=== PATIENT | female | born 1995 | race Caucasian/White ===

== ENCOUNTER 2018-03-17 07:26 | Inpatient (IN) | payer MEDICAID ==
[2018-03-17] MEDS ORDERED: RINGERS SOLUTION,LACTATED 300 ML IV ONE (08:11)
[2018-03-17] MEDS ORDERED: RINGERS SOLUTION,LACTATED 1,000 ML IV PRN ×2 (08:11)
[2018-03-17] MEDS ORDERED: OXYTOCIN/NORMAL SALINE 20 UNIT/1,000 ML RTUINJ IV PRN ×2 (08:11→15:06)
[2018-03-17] MEDS ORDERED: OXYTOCIN/NORMAL SALINE 0 UNIT/0 ML RTUINJ ONE (09:06)
[2018-03-17] MEDS ORDERED: LIDOCAINE 1% INJ-PF (10 MG/ML) 30 ML SDV ONE (09:20)
[2018-03-17] MEDS ORDERED: OXYTOCIN/NORMAL SALINE 20 UNIT/1,000 ML RTUINJ ONE (09:20)
[2018-03-17] MEDS ORDERED: MISOPROSTOL 0.2 MG TABLET ONE (09:20)
[2018-03-17 09:29] LABS: APPEARANCE,URINE CLEAR; BILIRUBIN,URINE NEGATIVE (NEGATIVE); COLOR,URINE YELLOW; GLUCOSE, URINE NEGATIVE (NEGATIVE); KETONES,URINE NEGATIVE (NEGATIVE); LEUKOCYTE ESTERASE,URINE NEGATIVE (NEGATIVE); NITRITE,URINE NEGATIVE (NEGATIVE); PROTEIN,URINE NEGATIVE (NEGATIVE); UROBILINOGEN,URINE NEGATIVE mg/dL (<2.0)
[2018-03-17 09:29] LABS: ABSOLUTE BASOPHILS # (AUTO) 0.1 10^3/uL (0.0-0.2); ABSOLUTE LYMPHOCYTES (AUTO) 1.6 10^3/uL (0.5-4.7); ABSOLUTE MONOCYTES (AUTO) 0.6 10^3/uL (0.1-1.4); ABSOLUTE NEUT (AUTO) 7.8 10^3/uL (1.7-8.2); BASOPHILS % (AUTO) 0.7 % (0-2); EOSINOPHILS % (AUTO) 0.2 % (0-6); HEMATOCRIT 39.4 % (36.0-47.0); HEMOGLOBIN 13.6 g/dL (12.0-15.5); LYMPHOCYTES % (AUTO) 15.9 % (13-45); MEAN CORPUSCULAR HEMOGLOBIN 30.3 pg (27.0-33.4); MEAN CORPUSCULAR HGB CONC 34.6 g/dL (32.0-36.0); MEAN CORPUSCULAR VOLUME 88 fl (80-97); MONOCYTES % (AUTO) 6.2 % (3-13); PLATELET COUNT 263 10^3/uL (150-450); RED BLOOD COUNT 4.51 10^6/uL (3.72-5.28); RED CELL DISTRIBUTION WIDTH 12.5 % (11.5-14.0); TOTAL CELLS COUNTED % (AUTO) 100 %; WHITE BLOOD COUNT 10.1 10^3/uL (4.0-10.5)
[2018-03-17 09:34] LABS: URINE SPECIFIC GRAVITY 1.013
[2018-03-17 10:07] LABS: URINE AMPHETAMINES SCREEN NEGATIVE; URINE BARBITURATES SCREEN NEGATIVE; URINE BENZODIAZEPINES SCREEN NEGATIVE; URINE COCAINE SCREEN NEGATIVE; URINE MARIJUANA (THC) SCREEN NEGATIVE; URINE METHADONE SCREEN NEGATIVE; URINE PHENCYCLIDINE SCREEN NEGATIVE
--- NOTE | 2018-03-17 15:01 | Admission Physical ---
Datetime Report Generated by CPN: 03/17/2018 15:01 CURRENT ADMISSION Chief Complaint: Scheduled Induction of Labor Indication for Induction: Post Dates Admit Impression : Term, Intrauterine Admit Plan: Admit to Unit; Initiate Labor Induction Protocol ALLERGIES Medication Allergies: No Medication Allergies: No Known Allergies (02/20/2016) Latex: No Latex Allergies OBSTETRICAL HISTORY EDC: 03/11/2018 00:00 : 4 Para: 3 Term: 3 : 0 SAB: 0 IAB: 0 Ectopic: 0 Livin Cesareans: 0 VBACs: 0 Multiple Births: 0 Gestational Diabetes: No Rh Sensitization: No Incompetent Cervix: No RAKESH: No Infertility: No ART Treatment: No Uterine Anomaly: No IUGR: No Hx Previous C/S: No Macrosomia: No Hx Loss/Stillborn: No PIH: Yes Hx : No Placenta Previa/Abruption: No Depression/PP Depression: No PTL/PROM: No Post Hemorrhage: No Current Procedures: Ultrasound; NST Obstetrical History Comments: G1- 2012 at 39 weeks, 7lbs 7oz male, epidural G2- 2015 at 40 weeks, 7lbs 3oz male G3- 2016 at 39 weeks, 8lbs female G4- current, late PNC at 28 weeks, GHTN SEE RECORDS Alcohol: No Marijuana : No Cocaine: No Other Illicit Drugs: No Cigarettes: Former Smoker. 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 Surgery: No Heart Disease: No Hosp/Surgery: Yes Autoimmune Disorder: No Anesthetic Complications: No Kidney Disease: No Abnormal Pap Smear: No Neuro/Epilepsy: No Psychiatric Disorders: No Other Medical Diseases: No Hepatitis/Liver Disease: No Significant Family History: No Varicosities/Phlebitis: No Trauma/Violence : No Thyroid Dysfunction: No INFECTIOUS HISTORY Gonorrhea: No Genital Herpes: No Chlamydia: No Tuberculosis: No Syphilis: No Hepatitis: No HIV/AIDS Exposure: No Rash or Viral Illness: No HPV: No PHYSICAL EXAM General: Normal HEENT: Normal Neurologic: Normal Thyroid: Deferred Heart: Normal Lungs: Normal Breast: Deferred Back: Normal Abdomen: Normal Genitourinary Exam: Normal Extremities: Normal DTRs: Deferred Pelvic Type: Adequate Physical Exam Comments: pellvis proven to 8# Vital Signs: Reviewed VAGINAL EXAM Dilatation: 2-3 in clinic Contraction Comments: q3ming FETUS A EGA: 40.6 Monitoring: External US FHR- Baseline: 135 Variability: Moderate 6-25bpm Accelerations: 15X15 Decelerations: Early Estimated Weight (gm): 3300 Presentation: Vertex Admit Comment: at 40+6 by 28w sono, late to care, hx asthma as a child, atmitted for pitocin IOL PLANS FOR LABOR AND DELIVERY Labor and Delivery: None Pain Management: None; Natural Feeding Preference: Breast Benefit of Breast Feed Discussed: Yes Circumcision: Yes INFORMED CONSENT Assignment: Ana Laura Romero MD Signature: with User ID: [email or web address] : with User ID: [email or web address]
[2018-03-17] MEDS ORDERED: DIPH/PERTUSS(ACELL)/TETANUS VAC/PF 0.5 ML SYR (>=10YO) IM PRN (15:06)
[2018-03-17] MEDS ORDERED: DIPHENHYDRAMINE HCL 25 MG CAPSULE PO PRN (15:06)
[2018-03-17] MEDS ORDERED: ZOLPIDEM TARTRATE 5 MG TABLET PO PRN (15:06)
[2018-03-17] MEDS ORDERED: PROMETHAZINE HCL 25 MG TABLET PO PRN (15:06)
[2018-03-17] MEDS ORDERED: BENZOCAINE/MENTHOL AEROSOL SPRAY 56 ML TOP PRN (15:06)
[2018-03-17] MEDS ORDERED: PROMETHAZINE HCL 25 MG SUPP.RECT PR PRN (15:06)
[2018-03-17] MEDS ORDERED: PROMETHAZINE HCL INJ 25 MG/1 ML VIAL IV PRN (15:06)
[2018-03-17] MEDS ORDERED: NA PHOS,M-B/NA PHOS,DI-BA (ADULT) 133 ML ENEMA PR PRN (15:06)
[2018-03-17] MEDS ORDERED: MAGNESIUM HYDROXIDE SUSP 30 ML UDCUP PO PRN (15:06)
[2018-03-17] MEDS ORDERED: PSEUDOEPHEDRINE HCL 30 MG TABLET PO PRN (15:06)
[2018-03-17] MEDS ORDERED: ACETAMINOPHEN WITH CODEINE #3 TABLET PO PRN ×2 (15:06)
[2018-03-17] MEDS ORDERED: GLYCERIN/WITCH HAZEL LEAF 1 EACH MED..PAD TP PRN (15:06)
[2018-03-17] MEDS ORDERED: ACETAMINOPHEN 650 MG SUPP.RECT PR PRN (15:06)
[2018-03-17] MEDS ORDERED: DIBUCAINE 1% OINTMENT 28 GM TP PRN (15:06)
[2018-03-17] MEDS ORDERED: MEASLES,MUMPS&RUBELLA VACC/PF 0.5 ML VIAL SUBCUT PRN (15:06)
--- NOTE | 2018-03-17 15:37 | Warning Signs in Babies ---
VOD Warning Signs Datetime Report Generated by [facility]: 03/17/2018 15:36 VOD#608 -Warning Signs in Babies: Needs to be viewed. (03/17/2018 05:20:Lucina Juna RN)
--- NOTE | 2018-03-17 17:05 | Delivery Summary ---
Del Sum A-C Datetime Report Generated by CPN: 03/17/2018 17:04 DELIVERY PERSONNEL DELIVERY PERSONNEL: [id number] Delivery Doctor:: July Arnett CNM Labor and Delivery Nurse:: Estela Anderson RNferryboat operator Nurse:: Taya Romero RN Occupational Safety Specialist/MOBILE HOME SET UP PERSON: Stefanie Cesar CNA II Additional Personnel: : Lucina Juan RN, Pearl Salvador RN MATERNAL INFORMATION Delivery Anesthesia: None Medications After Delivery: Pitocin Bolus-Please Comment Meds After Delivery Comment: Pitocin 20 units in 1 L NS bolusing per order Maternal Complications: None Provider Comments: WHILE STANDING AT BEDSIDE WITH 2 PUSHES OA (UNSURE WHICH DIRECTION BABY FACING). BABY BOY WITH SPONTANEOUS CRY. CORD DOUBLE CLAMPED AND CUT. PT ASSISTED BACK TO BED FOR DELIVERY OF PLACENTA. SPONTANEOUS INTACT PLACENTA WITH 3VC. MOTHER AND INFANT STABLE IN L_D #1 LABOR SUMMARY EDC: 03/11/2018 00:00 No. Babies in Womb: 1 Attempted: No Labor Anesthesia: None LABOR INFORMATION Reason for Induction: Post Dates Onset of Labor: 03/17/2018 11:58 Complete Dilatation: 03/17/2018 14:31 Oxytocin: Augmentation Group B Beta Strep: Negative Antibiotics # of Doses: 0 Antibiotics Time of Last Dose: n/a Name of Antibiotic Given: n/a Steroids Given: None Reason Steroids Not Administered: Not Applicable MEMBRANES Membranes Rupture Method: Artificial Rupture of Membranes: 03/17/2018 13:50 Length of Rupture (hr): 0.80 Amniotic Fluid Color: Clear Amniotic Fluid Amount: Small Amniotic Fluid Odor: Normal STAGES OF LABOR Stage 1 hr: 2 Stage 1 min: 33 Stage 2 hr: 0 Stage 2 min: 7 Stage 3 hr: 0 Stage 3 min: 4 Total Time in Labor hr: 2 Total Time in Labor min: 44 VAGINAL DELIVERY Episiotomy: None Laceration #1: None Laceration Extension #1: N/A Laceration Repair: Not Applicable Sponge Count Correct: N/A Sharps Count Correct: N/A CSECTION DELIVERY Primary Indication: N/A Secondary Indication: N/A CSection Incidence: N/A Labor: N/A Elective: N/A CSection Incision: N/A BABY A INFORMATION Delivery Date/Time: 03/17/2018 14:38 Method of Delivery: Vaginal Born in Route : No : N/A Forceps: N/A Vacuum Extraction: N/A Shoulder Dystocia : No PRESENTATION/POSITION BABY A Presentation: Cephalic Cephalic Presentation: Vertex Vertex Position: Occipital Anterior Breech Presentation: N/A PLACENTA INFORMATION BABY A Placenta Delivery Time : 03/17/2018 14:42 Placenta Method of Delivery: Spontaneous Placenta Status: Delivered SCORES BABY A Heart Rate 1 min: >100 bpm Resp Effort 1 min: Slow, Irregular Reflex Irritability 1 min: Cough or Sneeze or Pulls Away Muscle Tone 1 min: Active Motion Color 1 min: Body [place], Extremities Blue Resuscitation Effort 1 min: N/A SCORE 1 MIN: 8 Heart Rate 5 min: >100 bpm Resp Effort 5 min: Slow, Irregular Reflex Irritability 5 min: Cough or Sneeze or Pulls Away Muscle Tone 5 min: Active Motion Color 5 min: Completely [place] SCORE 5 MIN: 9 INFORMATION BABY A Gestational Age at Delivery: 40.6 Gestational Status: Full Term- 39- 40.6 Weeks Outcome : Liveborn Infant Condition : Stable Infant Sex: Male IDENTIFICATION BABY A Verification Date/Time: 03/17/2018 15:20 ID Band Number: [id number] Mother's Name Verified: Yes RN Verifying Infant: Clau Juan RN Additional Verifying Personnel: Sayda Guerin RN WEIGHT/LENGTH BABY A Infant Birthweight (gm): 3840 Weight (lb): 8 Weight (oz): 7 Length (in): 21.00 Length (cm): 53.34 CORD INFORMATION BABY A No. Cord Vessels: 3 Nuchal Cord : N/A Cord Blood Taken: Yes-For Storage (Mom's Blood type +) Suction: None ASSESSMENT BABY A Infant Complications: None Physical Findings at Delivery: Within Normal Limits Infant Respirations: Appears Normal Skin to Skin: Yes Resident Hall Director/ALS Called : No Care By: CLoli Anderson, RN Transferred To: Remains with Mother BABY B INFORMATION : N/A SIGNATURES Assignment: Ana Laura Romero MD Signature: with User ID: [email or web address] : with User ID: [email or web address] : I was personally available for consultation and serving as supervising physician for the MLP.
[2018-03-17] MEDS: DOCUSATE SODIUM 100 MG CAPSULE PO SCH (17:43)
[2018-03-17] MEDS: FERROUS SULFATE 325 MG TABLET PO SCH (17:43)
[2018-03-17] MEDS: FAMOTIDINE 20 MG TABLET PO SCH (21:13)
[2018-03-17] MEDS: IBUPROFEN 800 MG TABLET PO SCH (21:13)
[2018-03-18] MEDS: IBUPROFEN 800 MG TABLET PO SCH ×3 (05:50→21:26)
[2018-03-18 07:48] LABS: HEMATOCRIT 36.8 % (36.0-47.0); HEMOGLOBIN 13.2 g/dL (12.0-15.5); MEAN CORPUSCULAR HEMOGLOBIN 30.9 pg (27.0-33.4); MEAN CORPUSCULAR HGB CONC 35.8 g/dL (32.0-36.0); MEAN CORPUSCULAR VOLUME 86 fl (80-97); PLATELET COUNT 260 10^3/uL (150-450); RED BLOOD COUNT 4.27 10^6/uL (3.72-5.28); WHITE BLOOD COUNT 10.4 10^3/uL (4.0-10.5)
[2018-03-18] MEDS: DOCUSATE SODIUM 100 MG CAPSULE PO SCH ×2 (10:21→17:24)
[2018-03-18] MEDS: SENNOSIDES/DOCUSATE 8.6-50 MG 1 EACH TABLET PO SCH (10:21)
[2018-03-18] MEDS: FERROUS SULFATE 325 MG TABLET PO SCH ×2 (10:21→17:24)
[2018-03-18] MEDS: FAMOTIDINE 20 MG TABLET PO SCH ×2 (10:21→21:26)
[2018-03-18] MEDS: PRENATAL VITAMIN W DHA CAPSULE PO SCH (10:21)
--- NOTE | 2018-03-18 12:01 | PDOC PROGRESS REPORT ---
Subjective-OB Progress Note for:: 03/18/18 Subjective: Pt doing well, no concerns. She reports light bleeding, reg diet and is voiding without difficulty. Bonding with baby. Physical Exam (OB) Vital Signs: Temp Pulse Resp BP Pulse Ox 97.8 F 66 15 117/84 98 03/18/18 07:34 03/18/18 07:34 03/18/18 07:34 03/18/18 07:34 03/18/18 07:34 Intake & Output 03/17/18 03/18/18 03/19/18 06:59 06:59 06:59 Intake Total 250 Balance 250 Weight 85.4 kg - Lochia Lochia Amount: Scant < 10 ml Lochia Color: Rubra/Red - Abdomen Description: Tender, Soft Hernia Present: No Fundal Description: Firm, Midline Fundal Height: u/u - u/2 Objective-Diagnostic Laboratory: 03/18/18 07:20 03/18/18 07:20 WBC 10.4 RBC 4.27 Hgb 13.2 Hct 36.8 MCV 86 MCH 30.9 MCHC 35.8 RDW 13.0 Plt Count 260 Assessment and Plan(PN) - Assessment and Plan (1) Vaginal delivery Is this a current diagnosis for this admission?: Yes - Time Spent with Patient Time with patient: Less than 15 minutes Medications reviewed and adjusted accordingly: Yes - Disposition Anticipated Discharge: Home Within: within 24 hours
[2018-03-18] MEDS ORDERED: MEASLES,MUMPS&RUBELLA VACC/PF 0.5 ML VIAL SUBCUT PRN (15:30)
[2018-03-18] MEDS ORDERED: DIPH/PERTUSS(ACELL)/TETANUS VAC/PF 0.5 ML SYR (>=10YO) IM PRN (15:30)
[2018-03-18] MEDS ORDERED: PROMETHAZINE HCL INJ 25 MG/1 ML VIAL IV PRN (15:30)
[2018-03-19] MEDS: IBUPROFEN 800 MG TABLET PO SCH (05:15)
[2018-03-19 08:23] VITALS: BP 127/76
--- NOTE | 2018-03-19 08:51 | PDOC PROGRESS REPORT ---
Subjective-OB Progress Note for:: 03/19/18 Subjective: Doing well, no c/o, ready to go home, breast feeding, hsb at BS Physical Exam (OB) Vital Signs: Temp Pulse Resp BP Pulse Ox 97.6 F 80 16 127/76 H 99 03/19/18 07:35 03/19/18 08:14 03/19/18 07:35 03/19/18 08:14 03/19/18 07:35 Intake & Output 03/18/18 03/19/18 03/20/18 06:59 06:59 06:59 Intake Total 250 Balance 250 Weight 85.4 kg - PIH/Pre-Eclampsia DTR's: 1 + Clonus: Negative Headache: Absent Epigastric Pain: No Visual Changes: No - Lochia Lochia Amount: Scant < 10 ml Lochia Color: Rubra/Red - Abdomen Description: Soft, Flat Hernia Present: No Fundal Description: Firm, Midline Fundal Height: u/u - u/2 Objective-Diagnostic Laboratory: 03/18/18 07:20 Assessment and Plan(PN) - Assessment and Plan (1) Vaginal delivery Is this a current diagnosis for this admission?: Yes - Time Spent with Patient Time with patient: Less than 15 minutes Medications reviewed and adjusted accordingly: Yes - Disposition Anticipated Discharge: Home Within: within 24 hours
--- NOTE | 2018-03-19 08:54 | PDOC DISCHARGE SUMMARY ---
Final Diagnosis Discharge Date: 03/19/18 - Final Diagnosis (1) Vaginal delivery Is this a current diagnosis for this admission?: Yes Discharge Data - Discharge Medication Home Medications: Pnv W-O Ca No5/Fe Fumarate/FA [-U Multiple Vitamin Capsule] 1 cap PO DAILY 05/17/12 Gestational Age: 40.6 Reason(s) for Admission: Induction of Labor Procedures: NST, Ultrasound Intrapartum Procedure(s): Spontaneous Vaginal Delivery - Data Baby 1 Male Home with Mother: Yes Complications: No - Diagnosis Test Laboratory: Temp Pulse Resp BP Pulse Ox 97.6 F 80 16 127/76 H 99 03/19/18 07:35 03/19/18 08:14 03/19/18 07:35 03/19/18 08:14 03/19/18 07:35 03/17/18 03/17/18 03/18/18 09:05 09:12 07:20 RBC 4.51 4.27 Hgb 13.6 13.2 Hct 39.4 36.8 Urine Opiates Screen NEGATIVE - Discharge information/Instructions Discharge Activity: Activity As Tolerated, No Lifting Over 10 Pounds, No Lifting /Push/Pulling, Pelvic Rest Discharge Diet: As Tolerated, Regular Disposition: HOME, SELF-CARE Follow up with: [facility] in: 2, Weeks
[2018-03-19] MEDS: FERROUS SULFATE 325 MG TABLET PO SCH (09:29)
[2018-03-19] MEDS: DOCUSATE SODIUM 100 MG CAPSULE PO SCH (09:29)
[2018-03-19] MEDS: SENNOSIDES/DOCUSATE 8.6-50 MG 1 EACH TABLET PO SCH (09:29)
[2018-03-19] MEDS: FAMOTIDINE 20 MG TABLET PO SCH (09:29)
[2018-03-19] MEDS: PRENATAL VITAMIN W DHA CAPSULE PO SCH (09:29)
== END 2018-03-19 12:56 | disposition home or self-care (01) | DRG 807 ==
LOC: LR 07:26 → 2S 16:58
PROVIDERS: ADMIT Obstetrics & Gynecology; ATTEND Obstetrics & Gynecology
PROC: 10E0XZZ Delivery of Products of Conception, External Approach (ICD-10-PCS; principal; 2018-03-17)
PROC: 4A1HXCZ Monitoring of Products of Conception, Cardiac Rate, External Approach (ICD-10-PCS; 2018-03-17)
PROC: 3E0234Z Introduction of Serum, Toxoid and Vaccine into Muscle, Percutaneous Approach (ICD-10-PCS; 2018-03-19)
PROC: 3E02340 Introduction of Influenza Vaccine into Muscle, Percutaneous Approach (ICD-10-PCS; 2018-03-19)
DX: O48.0 Post-term pregnancy (principal); O13.4 Gestational [pregnancy-induced] hypertension without significant proteinuria, complicating childbirth; Z3A.40 40 weeks gestation of pregnancy; Z87.891 Personal history of nicotine dependence; Z23 Encounter for immunization; Z37.0 Single live birth
CPT/HCPCS: 36415; 80307; 81005; 85025; 85027; 86592; 86850; 86900; 86901; 90471; 90686; 90715; G0008; J2590; J3490

== ENCOUNTER → 2018-05-21 | Day surgery (SDC) | payer MEDICAID ==
[2018-05-20 11:39] LABS: HEMATOCRIT 40.9 % (36.0-47.0); HEMOGLOBIN 14.2 g/dL (12.0-15.5); MEAN CORPUSCULAR HEMOGLOBIN 29.8 pg (27.0-33.4); MEAN CORPUSCULAR HGB CONC 34.8 g/dL (32.0-36.0); MEAN CORPUSCULAR VOLUME 86 fl (80-97); PLATELET COUNT 317 10^3/uL (150-450); RED BLOOD COUNT 4.78 10^6/uL (3.72-5.28); RED CELL DISTRIBUTION WIDTH 12.8 % (11.5-14.0); WHITE BLOOD COUNT 7.3 10^3/uL (4.0-10.5)
[2018-05-20 11:47] LABS: APPEARANCE,URINE SLIGHTLY-CLOUDY; BILIRUBIN,URINE NEGATIVE (NEGATIVE); COLOR,URINE YELLOW; GLUCOSE, URINE NEGATIVE (NEGATIVE); KETONES,URINE NEGATIVE (NEGATIVE); LEUKOCYTE ESTERASE,URINE NEGATIVE (NEGATIVE); NITRITE,URINE NEGATIVE (NEGATIVE); PROTEIN,URINE NEGATIVE (NEGATIVE); URINE SPECIFIC GRAVITY 1.023; UROBILINOGEN,URINE NEGATIVE mg/dL (<2.0)
[~2018-05-21] MED LIST: ACETAMINOPHEN 1,000 MG/100 ML RTUPB IV ONE; BUPIVACAINE HCL 0.25 % INJ/PF (2.5 MG/1 ML) 30 ML VIAL ONE; DEXAMETHASONE SOD PHOSPHATE INJ 4 MG/1 ML VIAL ONE; DIPHENHYDRAMINE HCL 50 MG/ML VIAL IV PRN; FENTANYL CITRATE INJ/PF 100 MCG/2 ML AMPUL IV PRN; FENTANYL CITRATE INJ/PF 100 MCG/2 ML AMPUL ONE; IBUPROFEN 800 MG TABLET PO SCH; KETOROLAC TROMETHAMINE INJ/PF 30 MG/1 ML SDV ONE; LACTATED RINGERS 1000 ML IV PRN; LIDOCAINE 0.5% INJ-PF (5 MG/ML) 50 ML SDV SUBCUT PRN; MEPERIDINE HCL/PF INJ 25 MG/1 ML DISP.SYRIN IV PRN; MIDAZOLAM 2 MG/2 ML INJ ONE; MORPHINE SULFATE 10 MG/ML INJ IV PRN; MORPHINE SULFATE 10 MG/ML INJ ONE; ONDANSETRON HCL 8 MG TABLET PO PRN; ONDANSETRON HCL INJ/PF 4 MG/2 ML SDV ONE; OXYCODONE-ACETAMINOPHEN 5-325 MG TABLET ONE; OXYCODONE-ACETAMINOPHEN 5-325 MG TABLET PO PRN; PROMETHAZINE HCL INJ 25 MG/1 ML VIAL IV PRN; PROPOFOL INJ 200 MG/20 ML VIAL IV ONE; SUCCINYLCHOLINE CHLORIDE INJ 200 MG/10 ML VIAL ONE
[2018-05-21 14:59] VITALS: BP 133/92
--- NOTE | 2018-05-21 18:22 | OPERATIVE REPORT E ---
Operative Report NAME: MARK ONOFRE : 1995 AGE: 22Y DATE OF SURGERY: 05/21/2018 ROOM: PREOPERATIVE DIAGNOSIS: DESIRES STERILIZATION. POSTOPERATIVE DIAGNOSIS: DESIRES STERILIZATION. OPERATION: Bilateral tubal occlusion using Filshie clips. SURGEON: Sayda VAZQUEZ M.D. ANESTHESIA: General. ESTIMATED BLOOD LOSS: Less than 5 cc. TISSUE REMOVED: None. PROCEDURE: Patient was placed in dorsolithotomy position, prepped and draped in sterile fashion. Speculum was placed, cervix visualized and grasped using a single-toothed tenaculum. Hulka tenaculum was placed. Single-toothed tenaculum was removed. The speculum was removed and bladder drained with a catheter. A subumbilical 7-cm incision was made. The trocar was introduced, with insufflation of the abdomen. The right fallopian tube was occluded in the midportion, with a good purchase of tissue being noted. Procedure was repeated on the left. Again, good amount of tissue being occluded, and tubes identified to the fimbria prior to and after banding. The laparoscope was removed and the abdomen deflated. Trocar and sleeves removed. The incision closed with 0 Vicryl for the fascia and 4-0 for the subcutaneous. The patient tolerated it well and was taken to recovery in good condition. DICTATING PHYSICIAN: Sayda VAZQUEZ M.D. [id number] PHY#: [id number] ID: [id number] JOB#: [id number] ACCT: [id number] cc:Sayda VAZQUEZ M.D. >
== END ==
LOC: OROUT 10:13
PROVIDERS: ATTEND Obstetrics & Gynecology Gynecology
DX: Z30.2 Encounter for sterilization (principal); Z87.891 Personal history of nicotine dependence
CPT/HCPCS: 36415; 85027; 81005; 81025; 58671; J2250; J1100; J3010; J1885; J2270; J0330; J2405; S0020; J2704; J0131; 851